=== PATIENT | male | born 1950 | race Caucasian/White ===

== ENCOUNTER 2020-08-15 10:22 | Emergency (ER) | payer MEDICARE, MEDICAID ==
[~2020-08-15] VITALS: Ht 182 cm; Wt 125.0 kg
--- NOTE | 2020-08-15 10:26 | ED Chest Pain ---
General Stated Complaint: CHEST PAIN Source: patient Exam Limitations: no limitations History of Present Illness Date Seen by Provider: Aug 15, 2020 Time Seen by Provider: 10:24 Initial Comments 69-year-old male presents with some chest tightness and shortness of breath. Patient reports that shortness of breath and chest tightness started about 3 days ago after being out in 11 weather and was out and it for a while. Patient has a history of COPD but does not take any inhalers. Patient reports he continues a pack per day smoking habit. He denies any nausea vomiting diaphoresis. Patient reports some mild increasing cough. No known COVID exposure. No fever, chills, nausea, vomiting, diarrhea, chest pain. Allergies and Home Medications Allergies Coded Allergies: No Known Drug Allergies (Unverified , 08/15/20) Patient Home Medication List Home Medication List Reviewed: Yes Review of Systems Review of Systems Constitutional: No chills, No fever Respiratory: Cough, Shortness of Air Cardiovascular: See HPI; Denies Chest Pain Gastrointestinal: Denies Diarrhea, Denies Nausea, Denies Vomiting Genitourinary: No Symptoms Reported Musculoskeletal: no symptoms reported Skin: no symptoms reported Psychiatric/Neurological: No Symptoms Reported Endocrine: No Symptoms Reported Past Osxawpv-Tbznrj-Gshikh Hx Past Med/Social Hx: Reviewed Nursing Past Med/Soc Hx Physical Exam Vital Signs Vital Signs - First Documented 08/15/20 10:22 Temp 36.0 Pulse 56 Resp 18 B/P (MAP) 168/69 (102) Pulse Ox 98 O2 Delivery Room Air Capillary Refill : Height, Weight, BMI Height: '" Weight: lbs. oz. kg; BMI Method: General Appearance: No Apparent Distress, WD/WN HEENT: PERRL/EOMI Respiratory: No Accessory Muscle Use, No Respiratory Distress, Decreased Breath Sounds (mild diffuse), Wheezing Cardiovascular: Regular Rate, Rhythm, No Edema Gastrointestinal: Non Tender, Soft Neurologic/Psychiatric: Alert, Oriented x3, Normal Mood/Affect, pipe foreman II-XII Norm as Tested Skin: Normal Color, Warm/Dry Progress/Results/Core Measures Results/Orders Lab Results Laboratory Tests Test 08/15/20 10:40 Range/Units White Blood Count 9.4 4.3-11.0 10^3/uL Red Blood Count 5.04 4.35-5.85 10^6/uL Hemoglobin 14.7 13.3-17.7 G/DL Hematocrit 45 40-54 % Mean Corpuscular Volume 89 80-99 FL Mean Corpuscular Hemoglobin 29 25-34 PG Mean Corpuscular Hemoglobin Concent 33 32-36 G/DL Red Cell Distribution Width 12.8 10.0-14.5 % Platelet Count 159 130-400 10^3/uL Mean Platelet Volume 12.0 H 7.4-10.4 FL Immature Granulocyte % (Auto) 1 % Neutrophils (%) (Auto) 78 H 42-75 % Lymphocytes (%) (Auto) 16 12-44 % Monocytes (%) (Auto) 1 0-12 % Eosinophils (%) (Auto) 4 0-10 % Basophils (%) (Auto) 1 0-10 % Neutrophils # (Auto) 7.3 1.8-7.8 X 10^3 Lymphocytes # (Auto) 1.5 1.0-4.0 X 10^3 Monocytes # (Auto) 0.1 0.0-1.0 X 10^3 Eosinophils # (Auto) 0.4 H 0.0-0.3 10^3/uL Basophils # (Auto) 0.1 0.0-0.1 10^3/uL Immature Granulocyte # (Auto) 0.1 0.0-0.1 10^3/uL Prothrombin Time 12.8 12.2-14.7 SEC INR Comment 0.9 0.8-1.4 Activated Partial Thromboplast Time 31 24-35 SEC Sodium Level 139 135-145 MMOL/L Potassium Level 5.3 H 3.6-5.0 MMOL/L Chloride Level 105 98-107 MMOL/L Carbon Dioxide Level 24 21-32 MMOL/L Anion Gap 10 5-14 MMOL/L Blood Urea Nitrogen 28 H 7-18 MG/DL Creatinine 1.49 H 0.60-1.30 MG/DL Estimat Glomerular Filtration Rate 46 BUN/Creatinine Ratio 19 Glucose Level 189 H 70-105 MG/DL Calcium Level 9.1 8.5-10.1 MG/DL Corrected Calcium 9.2 8.5-10.1 MG/DL Magnesium Level 1.7 1.6-2.4 MG/DL Total Bilirubin 0.3 0.1-1.0 MG/DL Aspartate Amino Transf (AST/SGOT) 15 5-34 U/L Alanine Aminotransferase (ALT/SGPT) 15 0-55 U/L Alkaline Phosphatase 68 40-136 U/L Myoglobin 68.4 10.0-92.0 NG/ML Troponin I < 0.30 <0.30 NG/ML Total Protein 7.0 6.4-8.2 GM/DL Albumin 3.9 3.2-4.5 GM/DL My Orders Orders - NDIAYE,SARITA L DO Cbc With Automated Diff (08/15/20 10:) Magnesium (08/15/20 10:) Chest 1 View Ap/Pa Only (08/15/20 10:) Ekg Tracing (08/15/20 10:) Comprehensive Metabolic Panel (08/15/20 10:) Myoglobin Serum (08/15/20 10:) Protime With Inr (08/15/20:) Partial Thromboplastin Time (08/15/20 10:) Monitor-Rhythm Ecg Trace Only (08/15/20 10:) Lipid Panel (08/16/20 06:00) Ed Iv/Invasive Line Start (08/15/20 10:26) Troponin I Fs (08/15/20 10:26) Aspirin Chewable Tablet (Baby Aspirin Ch (08/15/20 10:30) Albuterol/Ipra Inhalation Soln (Duoneb I (08/15/20 10:30) Svn Small Volume Nebulizer (08/15/20 10:26) Solu-Medrol 125 Mg Iv (08/15/20 11:40) Medications Given in ED Current Medications Medications Dose Ordered Sig/Elizabeth Route Start Time Stop Time Status Last Admin Dose Admin Albuterol/ Ipratropium 3 ml ONCE ONCE INH 08/15/20 10:30 08/15/20 10:31 DC 08/15/20 10:49 3 ML Aspirin 324 mg ONCE ONCE PO 08/15/20 10:30 08/15/20 10:31 DC 08/15/20 10:50 324 MG Vital Signs/I&O 08/15/20 08/15/20 10:22 10:45 Temp 36.0 Pulse 56 Resp 18 B/P (MAP) 168/69 (102) Pulse Ox 98 O2 Delivery Room Air Room Air Progress Progress Note : Time: 11:47 Progress Note Patient with nonspecific EKG with a negative troponin. Patient symptoms a been going on for 3 days. He feels like his morning is lungs. Troponins negative after approximate 3 days of the chest discomfort. I did offer him admission for further cardiac workup the patient declined. I will treat him for COPD as this is most likely the cause of his shortness of breath and discomfort. Recommend he follow-up with his primary care provider towards the end of week for recheck Initial ECG Impression Date: Aug 15, 2020 Initial ECG Impression Time: 10:30 Initial ECG Rhythm: Normal Sinus Initial ECG Impression: Nonspecific Changes Initial ECG Comparisson: No Previous ECG Available Comment Patient with sinus rhythm, heart rate 54, nonspecific changes, no acute changes Departure Impression Primary Impression: COPD exacerbation Disposition: 01 HOME, SELF-CARE Condition: Stable Departure-Patient Inst. Patient Instructions: Exacerbation of COPD (DC), Chronic Obstructive Pulmonary Disease (COPD) (DC) Add. Discharge Instructions: Follow-up with your primary care provider in 3-4 days for recheck in today symptoms Return the ER as needed for worsening symptoms Scripts Prednisone (Prednisone) 20 Mg Tab 40 MG PO DAILY, #6 TAB 0 Refills Prov: SARITA NDIAYE DO 08/15/20 Albuterol Sulfate (Ventolin Hfa) 18 Gm Hfa.aer.ad 18 GM INH Q4H PRN for WHEEZING, #1 EA Prov: SARITA NDIAYE DO 08/15/20 Azithromycin (Azithromycin) 250 Mg Tablet 250 MG PO UD, #6 TAB TAKE 2 TABLETS ON DAY ONE THEN TAKE 1 TABLET DAILY FOR FOUR MORE DAYS Prov: SARITA NDIAYE DO 08/15/20 SARITA NDIAYE DO Aug 15, 2020 10:26
[2020-08-15] MEDS ORDERED: RT-ALBUTEROL/IPRATROPIUM 3 ML (DUONEB) VIAL INH ONE (10:30)
[2020-08-15] MEDS ORDERED: ASPIRIN 81 MG CHEW (CHILDREN'S ASA) PO ONE (10:30)
--- NOTE | 2020-08-15 10:43 | Diagnostic Imaging Report ---
INDICATION: Shortness of breath and chest pain. TIME OF EXAM: 10:27 AM. COMPARISON: No prior studies are available for comparison. FINDINGS: The heart size is normal. The pulmonary vascularity is unremarkable. The lungs are clear. No infiltrate, effusion, or pneumothorax is detected. IMPRESSION: No acute cardiopulmonary process is detected. Dictated by: Dictated on workstation # [id number]
[2020-08-15 11:05] LABS: BASOPHILS % (AUTO) 1 % (0-10); EOSINOPHILS % (AUTO) 4 % (0-10); HEMATOCRIT 45 % (40-54); HEMOGLOBIN 14.7 G/DL (13.3-17.7); LYMPHOCYTES % (AUTO) 16 % (12-44); MEAN CORPUSCULAR HEMOGLOBIN 29 PG (25-34); MEAN CORPUSCULAR HGB CONC 33 G/DL (32-36); MEAN CORPUSCULAR VOLUME 89 FL (80-99); MONOCYTES % (AUTO) 1 % (0-12); NEUTROPHILS # (AUTO) 7.3 X 10^3 (1.8-7.8); NEUTROPHILS % (AUTO) 78 % (42-75); PLATELET COUNT 159 10^3/uL (130-400); WHITE BLOOD COUNT 9.4 10^3/uL (4.3-11.0)
[2020-08-15 11:06] LABS: BASOPHILS # (AUTO) 0.1 10^3/uL (0.0-0.1); EOSINOPHILS # (AUTO) 0.4 10^3/uL (0.0-0.3); LYMPHOCYTES # (AUTO) 1.5 X 10^3 (1.0-4.0); MONOCYTES # (AUTO) 0.1 X 10^3 (0.0-1.0)
[2020-08-15 11:35] LABS: CREATININE SERUM 1.49 MG/DL (0.60-1.30); POTASSIUM 5.3 MMOL/L (3.6-5.0)
[2020-08-15 11:36] LABS: ALBUMIN 3.9 GM/DL (3.2-4.5); BILIRUBIN,TOTAL 0.3 MG/DL (0.1-1.0); CALCIUM 9.1 MG/DL (8.5-10.1); MAGNESIUM 1.7 MG/DL (1.6-2.4)
[2020-08-15 11:39] LABS: INR 0.9 (0.8-1.4); PROTHROMBIN TIME PATIENT 12.8 SEC (12.2-14.7)
[2020-08-15] MEDS ORDERED: methylPREDNISolone 125 MG (Solu-MEDROL) VIAL IV STA (11:40)
[2020-08-15] MEDS ORDERED: ALBU18HF2 INH (11:46)
[2020-08-15] MEDS ORDERED: PRD20T PO (11:46)
[2020-08-15] MEDS ORDERED: AZIT250T12 PO (11:46)
[2020-08-15 11:54] VITALS: BP 122/72
== END 2020-08-15 11:55 | disposition home or self-care (01) ==
LOC: ER FS 10:25
DX: J44.1 Chronic obstructive pulmonary disease with (acute) exacerbation (principal)
CPT/HCPCS: 36415; 71045; 80053; 83735; 83874; 84484; 85025; 85610; 85730; 93005; 93041

== ENCOUNTER → 2020-11-28 | Outpatient (CLI) | payer MEDICARE, MEDICAID ==
[~2020-11-28] MED LIST: ALBU18HF2 INH; AZIT250T12 PO; PRD20T PO
== END ==
LOC: CARD 10:00
PROVIDERS: ATTEND Internal Medicine Cardiovascular Disease
DX: I11.9 Hypertensive heart disease without heart failure (principal)
CPT/HCPCS: 93306

== ENCOUNTER → 2021-01-10 | Outpatient (CLI) | payer MEDICARE, MEDICAID ==
[~2021-01-10] VITALS: Ht 182 cm; Wt 102.0 kg
[~2021-01-10] MED LIST changes: +CATHETER FLUSH 10 ML SYR IV PRN; +REGADENOSON 0.4 MG/5 ML SYR (LEXISCAN) IV ONE
[2021-01-10 09:04] VITALS: BP 154/67
--- NOTE | 2021-01-10 11:19 | Cardiology Stress Test Report ---
Stress Test Report Date of Procedure/Referring: Date of Procedure: January 10, 2021 PCP Dwain Colon MD Admitting Physician Santana Poon MD Indications: Hypertension Baseline Heart Rate: 48 Baseline Blood Pressure: Blood Pressure Systolic: 154 Blood Pressure Diastolic: 67 Baseline Vitals Vital Signs Date Time Temp Pulse Resp B/P (MAP) Pulse Ox O2 Delivery O2 Flow Rate FiO2 01/10/21 09:04 50 154/67 (96) 96 Baseline EKG: Baseline EKG: NSR Summary After explaining the procedure to the patient, he signed a consent and then brought to the stress nuclear laboratory. Patient received 0.4 mg Lexiscan for stress test, ECG, heart rate and blood pressure were monitored continuously. Resting and stress dose of radio tracer were injected, imaging was acquired and reviewed in short axis, horizontal long axis and vertical long axis views. TID: 1.15 SSS: 6 SDS: 5 EF: 67 1. Patient tolerated Lexiscan well 2. Diaphragmatic attenuation with decreased uptake involving the inferior wall and inferolateral wall 3. Normal left ventricular size, EF 67% DWAIN COLON MD January 10, 2021 11:19
== END ==
LOC: CARD 07:38
PROVIDERS: ATTEND Internal Medicine Cardiovascular Disease
DX: I10 Essential (primary) hypertension (principal); R07.9 Chest pain, unspecified
CPT/HCPCS: 78452; 93017; A9502

== ENCOUNTER 2021-02-02 10:00 | Day surgery (SDC) | payer MEDICARE, MEDICAID ==
[2021-02-02] VITALS (9 sets, daily range): BP systolic 121–163; BP diastolic 48–78
[~2021-02-02] VITALS: Ht 182.9 cm; Wt 100.6 kg
[2021-02-02 08:02] LABS: HEMATOCRIT 47 % (40-54); MEAN CORPUSCULAR HEMOGLOBIN 29 pg (25-34); MEAN CORPUSCULAR HGB CONC 32 g/dL (32-36); MEAN CORPUSCULAR VOLUME 89 fL (80-99); MEAN PLATELET VOLUME 11.9 fL (9.0-12.2); PLATELET COUNT 165 10^3/uL (130-400); WHITE BLOOD COUNT 10.2 10^3/uL (4.3-11.0)
--- NOTE | 2021-02-02 08:15 | Diagnostic Imaging Report ---
INDICATION: Pre-heart catheterization with chest pain and dyspnea. TIME OF EXAM: 7:52 AM Correlation is made with prior chest from 08/15/2020. FINDINGS: The heart size is normal. The pulmonary vascularity is unremarkable. The lungs are clear. No infiltrate, effusion or pneumothorax is detected. IMPRESSION: No acute cardiopulmonary process is detected. Dictated by: Dictated on workstation # [id number]
[2021-02-02 08:19] LABS: PROTHROMBIN TIME PATIENT 13.1 SEC (12.2-14.7)
[2021-02-02 08:25] LABS: ALBUMIN 3.9 GM/DL (3.2-4.5); BILIRUBIN,TOTAL 0.3 MG/DL (0.1-1.0); CALCIUM 9.3 MG/DL (8.5-10.1); CREATININE SERUM 1.81 MG/DL (0.60-1.30); POTASSIUM 4.6 MMOL/L (3.6-5.0)
--- NOTE | 2021-02-02 08:52 | Conscious Sedation/ASA ---
Conscious Sedation Pre-Proced Time 08:52 ASA Score 3 For ASA 3 and 4: Consider anesthesia and medical clearance. Also, for patients with a history of failed moderate sedation consider anesthesia. Airway Lungs Heart ASA score ASA 1: a normal healthy patient ASA 2: a patient with a mild systemic disease (mid diabetes, controlled hypertension, obesity x ASA 3: a patient with a severe systemic disease that limits activity (angina, COPD, prior Myocardial infarction) ASA 4: a patient with an incapacitating disease that is a constant threat to life (CHF, renal failure) ASA 5: a moribund patient not expected to survive 24 hrs. (ruptured aneurysm) ASA 6: a declared brain- patient whose organs are being harvested. For emergent operations, add the letter E after the classification Mallampati Classification Grade 3 Sedation Plan Analgesia, Amnesia, Plan communicated to team members, Discussed options with patient/fam, Discussed risks with patient/fam The patient is an appropriate candidate to undergo the planned procedure, sedation, and anesthesia. The patient immediately re-assessed prior to indication. DWAIN FIELD MD Feb 02, 2021 08:52
[~2021-02-02 10:00] MED LIST changes: +ASPI-1238 PO; +ATOR20TA66 PO; -CATHETER FLUSH 10 ML SYR IV PRN; +GLIM4TAB5 PO; +LISI1TAB29 PO; +METF-478 PO; +METO-333 PO; +NS IV 1000 ML 1,000 ML IV SCH; -REGADENOSON 0.4 MG/5 ML SYR (LEXISCAN) IV ONE; +TMSL.4C PO
[2021-02-02] MEDS ORDERED: METF-478 PO (11:12)
--- NOTE | 2021-02-02 11:13 | Discharge Inst-Post CATH ---
Discharge Inst-CATH/EP Problems Reviewed?: Yes Post Cardiac Cath/EP D/C Inst Follow Up/Plan Appointment with Dr. Ashutosh Roca in 1 to [address] Colon in 1 to 2 weeks <b>CARDIAC CATH/EP PROCEDURE DISCHARGE INSTRUCTIONS</b> ACTIVITY * Go Home directly and rest. * Limit activity of the leg (or wrist if it was used) for 7 days including aerobics, swimming, jogging, bicycling, etc. * Restrict stair-climbing for 7 days if possible, if not, climb up with your non-cath leg, then bring together on the same step. * Avoid lifting, pushing, pulling or excessive movement of the affected extremity for 7 days. * Customary sexual activity may be resumed after 2 days-use caution not to use a position that strains or causes pain to the affected extremity. * No driving for 24 hours. * NO SMOKING. * Avoid straining for bowel movements for 7 days. * Gentle walking on level ground is allowed. * Returning to work will depend on the type of procedure and the results. Your doctor will discuss this with you. CALL YOUR DOCTOR FOR ANY OF THE FOLLOWING: *If bleeding from the puncture site occurs- Apply gentle pressure to site with clean cloth and call your doctor or EMS. * If a knot or lump forms under the skin, increases in size, or causes pain. * If bruising appears to be worsening or moving further down your leg instead of disappearing. * Temperature above 101 F. CARE OF YOUR GROIN INCISION; * Bruising or purple discoloration of the skin near the puncture site is common. * You may shower only, no bathtub bathing for 5 days. Be careful to avoid slipping as your leg may feel stiff. * If a closure device was used on your femoral artery, please see the attached guide regarding care of the device and your leg. * Leave dressing on FOR 24 hours. CARE OF YOUR WRIST INCISION; * Bruising or purple discoloration of the skin near the puncture site is common. * You may shower. * DO NOT submerge wrist. * Leave dressing on FOR 24 hours. DWAIN COLON MD Feb 02, 2021 11:13 am
[2021-02-02] MEDS ORDERED: PATIENT MAY USE OWN MEDS, ALL PO SCH (11:15)
[2021-02-02] MEDS ORDERED: NS IV 1000 ML 1,000 ML IV SCH (11:15)
--- NOTE | 2021-02-02 11:23 | Cardiac Cath Report ---
Cardiac Cath Report Physician (s)/Home Comfort Advisor (s) Physician DWAIN FIELD MD Pre-Procedure Diagnosis Pre-Procedure Diagnosis: Coronary artery disease, peripheral arterial disease Post-Procedure Note Procedure Start Date: Feb 02, 2021 Name of Procedure: Left heart catheterization Bilateral lower extremity runoff First order Additional imaging x2 Findings/Procedure Note PROCEDURE NOTE: 70 years old gentleman has been having increasing claudication, diabetes, hypertension, had an abnormal MICHELLE, abnormal stress test, scheduled for cardiac catheterization and peripheral angiogram. After explaining the procedure to the patient, all pros and cons were explained, all questions were answered. The patient signed the consent and then he was placed on the cardiac catheterization laboratory. Groin was prepped SL fashion local anesthesia was used. Sheath placed in the right femoral artery. Angelica right and left catheter were used to access the coronary system. Angelica right catheter was placed at the bifurcation extending in the the left common iliac artery and runoff to the left leg was done then I advanced a straight wire and exchanged the catheter using short straight catheter placed at the common iliac artery and runoff to the left leg was done again then I did DSA imaging at the level of the trifurcation then the straight catheter was pulled back to the right common iliac artery and runoff to the right lower extremity was done then I proceeded with repeating the imaging and evaluate DSA imaging at the level of the trifurcation At the end of the procedure the sheath was removed. Closure device was deployed FINDINGS: Hemodynamics Aorta 108/38 mean of 59 ANATOMY: Left Main has moderate stenosis Left Anterior Descending is totally occluded at the ostium, severe stenosis at the diagonal artery proximally, the LAD is getting filled by collaterals Left Circumflex has moderate stenosis, the second obtuse marginal branch has 1 area of severe stenosis Right Coronary Artery is totally occluded proximally getting filled by collaterals LV Gram was not done due to the renal insufficiency Left lower extremity angiogram done on multiple phases, there is moderate to severe stenosis at the left common iliac artery, total occlusion of the SFA reconstructed at the popliteal area with three-vessel runoff Right lower extremity angiogram done on multiple phases, the right common iliac artery has moderate stenosis, total occlusion of the right SFA reconstructed at the popliteal artery, occluded anterior tibial artery with two-vessel runoff CONCLUSION: 1. Severe multivessel disease including total occlusion of the LAD reconstructed by collaterals total occlusion of the right coronary artery reconstructed by collaterals, severe disease at the proximal diagonal artery/ramus intermedius, moderate to severe disease at the second obtuse marginal branch 2. Severe peripheral arterial disease with total occlusion of both SFA, moderate to severe stenosis at the left common iliac artery, occluded right anterior tibial artery DISCUSSION AND RECOMMENDATION: Extensive peripheral arterial disease recommend evaluation with vascular surgery and will refer for evaluation for possible CABG Anesthesia Type: Conscious Sedation Estimated blood loss (mL): 15 ml Contrast Amount: 40 ml Total Radiation Dose: 643 mGy Post-Procedure Diagnosis Post-operative diagnosis: Coronary artery disease Peripheral arterial disease Claudication Hypertension DWAIN FIELD MD Feb 02, 2021 11:23 am
[2021-02-02] MEDS ORDERED: meTOprolol TARTRATE 25 MG (LOPRESSOR) TABLET PO SCH (21:00)
[2021-02-03] MEDS ORDERED: TAMSULOSIN 0.4 MG (FLOMAX) CAP PO SCH (09:00)
[2021-02-03] MEDS ORDERED: ASPIRIN E.C. 81 MG (ECOTRIN) TAB PO SCH (09:00)
[2021-02-03] MEDS ORDERED: LISINOPRIL HCTZ PO SCH (09:00)
== END 2021-02-02 15:15 | disposition home or self-care (01) ==
LOC: EDSTATUS 10:00 → CSD 12:41 → CATH 15:15
PROVIDERS: ATTEND Internal Medicine Cardiovascular Disease
DX: I25.10 Atherosclerotic heart disease of native coronary artery without angina pectoris (principal); I70.213 Atherosclerosis of native arteries of extremities with intermittent claudication, bilateral legs; I10 Essential (primary) hypertension; E78.2 Mixed hyperlipidemia; F17.210 Nicotine dependence, cigarettes, uncomplicated; Z79.82 Long term (current) use of aspirin; Z79.84 Long term (current) use of oral hypoglycemic drugs; Z79.899 Other long term (current) drug therapy
CPT/HCPCS: 36245; 36248; 71045; 75716; 80053; 80061; 85027; 85610; 85730; 87081; 93458; C1760; C1769; C1887; C1894; 36415

== ENCOUNTER → 2021-03-12 | Outpatient (CLI) | payer MEDICARE, MEDICAID ==
[~2021-03-12] MED LIST changes: -NS IV 1000 ML 1,000 ML IV SCH
[2021-03-12 10:50] LABS: ABG BASE EXCESS -3.9 MMOL/L (-2.5-2.5); ABG OXYGEN SATURATION 96 % (94-100); ABG PCO2 39 MMHG (35-45); ABG PO2 74 MMHG (79-93); ABG TCO2 22.5 MMOL/L (21.0-31.0)
[2021-03-12 10:52] LABS: PATIENT TEMP 35.3; VENTILATOR NO
[2021-03-12 11:04] LABS: ABG PH 7.34 (7.37-7.43)
== END ==
LOC: LAB 10:15
PROVIDERS: ATTEND Nurse Practitioner Family
DX: J44.9 Chronic obstructive pulmonary disease, unspecified (principal)
CPT/HCPCS: 82805

== ENCOUNTER → 2021-05-15 | Outpatient (CLI) | payer MEDICARE, MEDICAID ==
--- NOTE | 2021-05-15 09:08 | Diagnostic Imaging Report ---
EXAMINATION: CT chest without contrast. TECHNIQUE: Multiple contiguous axial images were obtained through the chest without the use of intravenous contrast. All CT scans use one or more of the following dose optimizing techniques: automated exposure control, MA and/or KvP adjustment based on patient size and exam type or iterative reconstruction. HISTORY: COPD COMPARISON: None available. FINDINGS: There is no edema or pneumonia. No pleural effusion. No pneumothorax. There are few tiny 2 and 3 mm nodules that appear calcified consistent with prior granulomatous infection. Lungs are moderately emphysematous. There is no axillary or supraclavicular lymphadenopathy. There is no mediastinal lymphadenopathy. Heart size is normal. There are severe coronary artery calcifications. No pericardial effusion. Aorta is normal in caliber. There has been coronary artery bypass grafting with scarring in the anterior mediastinum changes of median sternotomy. Limited views of the upper abdomen are unremarkable. There are no suspicious osseous lesions. IMPRESSION: 1. Moderately emphysematous lungs without acute abnormality Dictated by: Dictated on workstation # [id number]
== END ==
LOC: RAD 08:15
PROVIDERS: ATTEND Nurse Practitioner Family
DX: J43.9 Emphysema, unspecified (principal)
CPT/HCPCS: 71250

== ENCOUNTER → 2021-05-25 | Outpatient (CLI) | payer MEDICARE, MEDICAID | LOC: CARD 11:00 | PROVIDERS: ATTEND Internal Medicine Cardiovascular Disease | DX: I11.9 Hypertensive heart disease without heart failure (principal) | CPT/HCPCS: 93306 ==

== ENCOUNTER 2021-06-29 10:21 | Outpatient (RCR) | payer MEDICARE, MEDICAID ==
[~2021-06-29 10:21] MED LIST changes: -LISI1TAB29 PO; +LISI1TAB44 PO
== END 2021-08-17 | disposition home or self-care (01) ==
LOC: CR 10:21
PROVIDERS: ATTEND Thoracic Surgery (Cardiothoracic Vascular Surgery)
DX: Z95.1 Presence of aortocoronary bypass graft (principal)
CPT/HCPCS: 93798

== ENCOUNTER → 2021-12-27 | Outpatient (CLI) | payer MEDICARE, MEDICAID | LOC: CARDFS 14:19 | PROVIDERS: ATTEND Internal Medicine Cardiovascular Disease | DX: I11.9 Hypertensive heart disease without heart failure (principal) | CPT/HCPCS: 93306 ==

== ENCOUNTER → 2022-01-09 | Outpatient (CLI) | payer MEDICARE, MEDICAID ==
[~2022-01-09] MED LIST changes: +REGADENOSON 0.4 MG/5 ML SYR (LEXISCAN) IV ONE
[2022-01-09] MEDS: CATHETER FLUSH 10 ML SYR IVP PRN ×2 (07:48→09:29)
[2022-01-09 09:27] VITALS: BP 163/75
--- NOTE | 2022-01-09 13:19 | Cardiology Stress Test Report ---
Stress Test Report Date of Procedure/Referring: Date of Procedure: January 09, 2022 PCP Santana Poon MD Admitting Physician Admitting Physician: Attending Physician: Cheryl Colon MD Indications: CP Baseline Heart Rate: 57 Baseline Blood Pressure: Blood Pressure Systolic: 163 Blood Pressure Diastolic: 75 Baseline Vitals Vital Signs Date Time Temp Pulse Resp B/P (MAP) Pulse Ox O2 Delivery O2 Flow Rate FiO2 01/09/22 09:27 59 16 163/75 (104) 98 Room Air Baseline EKG: Baseline EKG: NSR Summary After explaining the procedure to the patient, he signed a consent and then brought to the stress nuclear laboratory. Patient received 0.4 mg Lexiscan for stress test, ECG, heart rate and blood pressure were monitored continuously. Resting and stress dose of radio tracer were injected, imaging was acquired and reviewed in short axis, horizontal long axis and vertical long axis views. TID: 1.13 SSS: 6 SDS: 2 EF: 51 1. Patient tolerated Lexiscan well 2. Diaphragmatic attenuation with decreased uptake involving the whole inferior wall and inferoapical wall and anterior apical segment with mild reversibility at the mid to apical inferior wall and anterior apical segment. 3. Normal left ventricular size, ejection fraction 51% Copy Copies To 1: SANTANA POON MD, BASHAR J MD January 09, 2022 13:19
== END ==
LOC: CARD 08:15
PROVIDERS: ATTEND Internal Medicine Cardiovascular Disease
DX: R07.9 Chest pain, unspecified (principal)
CPT/HCPCS: 78452; 93017; A9502

== ENCOUNTER 2022-02-20 06:43 | Outpatient (CLI) | payer MEDICARE, MEDICAID ==
[~2022-02-20] VITALS: Ht 182.9 cm; Wt 98.0 kg
[~2022-02-20 06:43] MED LIST changes: -REGADENOSON 0.4 MG/5 ML SYR (LEXISCAN) IV ONE
[2022-02-20] MEDS ORDERED: LOSA25TA41 PO (13:35)
[2022-02-20] MEDS ORDERED: AMLO-250 PO (13:35)
[2022-02-20] MEDS ORDERED: FLUT1AER IH (13:35)
[2022-02-20] MEDS ORDERED: UMEC62.5 IH (13:35)
[2022-02-20] MEDS ORDERED: SEMA0.25 SQ (13:35)
== END 2022-02-20 13:38 | disposition home or self-care (01) ==
LOC: PREOP 06:43
PROVIDERS: ATTEND Surgery
DX: Z01.818 Encounter for other preprocedural examination (principal)

== ENCOUNTER 2022-03-05 07:12 | Day surgery (SDC) | payer MEDICARE, MEDICAID ==
[~2022-03-05] VITALS: Ht 182.9 cm; Wt 98.0 kg
[~2022-03-05 07:12] MED LIST changes: +AMLO-250 PO; +FLUT1AER IH; +LOSA25TA41 PO; +SEMA0.25 SQ; +UMEC62.5 IH
[2022-03-05] MEDS ORDERED: LACTATED RINGERS 1,000 ML IV STA (07:15)
[2022-03-05 07:39] VITALS: BP 124/70
[2022-03-05] MEDS ORDERED: HURRICAINE EXT TUBE (BENZOCAINE) XX PRN (07:45)
[2022-03-05] MEDS ORDERED: PROPOFOL INJECTION 50 ML IV ONE (08:09)
[2022-03-05] MEDS ORDERED: MIDAZOLAM 2 MG/2 ML (VERSED) VIAL ONE (08:09)
--- NOTE | 2022-03-05 08:24 | Progress Note-Pre Operative ---
Pre-Operative Progress Note H&P Reviewed The H&P was reviewed, patient examined and no changes noted. Time Seen by Provider: 08:18 Date H&P Reviewed: Mar 05, 2022 Time H&P Reviewed: 08:18 Pre-Operative Diagnosis: Hx of colon polyps, Chronic Gastritis TANIA STAFFORD DO Mar 05, 2022 08:24
[2022-03-05 09:49] VITALS: BP 92/53
--- NOTE | 2022-03-05 09:52 | Progress Note-Post Operative ---
Post-Operative Progess Note Surgeon (s)/Bolt Labeler (s) Surgeon TANIA STAFFORD DO Bolt Labeler: JESUS Vivar Pre-Operative Diagnosis Hx of colon polyps, Chronic Gastritis Post-Operative Diagnosis Chronic Gastritis Gastric Ulcers Harrington's Esophagus Duodenitis Hiatal hernia Polyp diverticula int hemorrhoids Procedure & Operative Findings Date of Procedure 03/05/22 Procedure Performed/Findings EGD with Bx Colonoscopy with snare PROCEDURE NOTE: After informed consent was obtained, the patient was brought to the endoscopy suite, placed in bed in left lateral decubitus position. He was administered IV sedation by the BEVERAGE HOST who then monitored vitals the entire time, heart rate, blood pressure and pulse ox and the scope was inserted down the mouth through the esophagus into the stomach. On the way down, noted severe esophagitis; looked like Harrington's esophagus, took a picture. Pushed into the stomach and noted severe gastritis with what looked like old blood. Pushed past the antrum and into the duodenum; it looked like severe duodenitis and possibly ulcers here as well. Did a biopsy of the first portion of the duodenum, 2nd and 3rd portion looked ok. Pulled back and did a biopsy of the antrum and then retroflexed the scope. Saw a small hiatal hernia, took a picture of this and saw more inflammation and ulcers. Then pulled the scope into the GE junction, took another picture of the hiatal hernia and bad inflammation. Did a biopsy of the GE junction. Pushed the scope back into the stomach and suctioned all the air out of the stomach. At this point pulled the scope up the esophagus and out the mouth. Switched camera, switched gloves, went down below and started the colonoscopy. Pushed in and found a polyp in the ascending colon; did a snare polypectomy. Continued pushing in and found a diverticula just outside the cecum. Had pushed at least 150 cm to get all the way to cecum, took a picture of the appendiceal orifice and noted the ileocecal valve/ Then slowly withdrew the scope, insufflating to look circumferentially at the de [place] vega starting in the cecum, up the ascending colon to the hepatic flexure, then down the transverse colon to the splenic flexure, into the descending colon, down into the sigmoid and finally into the rectum. Retroflexed in the rectal vault and saw some minimal internal hemorrhoids and took a picture of this. The patient tolerated the procedure and he recovered in the endoscopy suite. Recommended for repeat colonoscopy in 5 years Anesthesia Type IV sedation by BEVERAGE HOST Estimated Blood Loss Estimated blood loss (mL): scant Specimens/Packing Specimens Removed duodenal bx antral bx GE jxn bx body of stomach bx asc colon polyp TANIA STAFFORD DO Mar 05, 2022 09:52
[2022-03-05 09:54] VITALS: BP 96/52
[2022-03-05] MEDS ORDERED: SUCR1TAB36 PO (09:54)
[2022-03-05] MEDS ORDERED: PANT40TA2 PO (09:54)
--- NOTE | 2022-03-05 09:55 | Endoscopy Discharge Instruct ---
Endo Procedure/Findings Findings 1.: Gastric Ulcer, Gastritis 2.: Hiatal Hernia 3.: Polyp 4.: Diverticulosis, Internal Hemorrhoids Discharge Instructions - Activity: You might feel a little sleepy until tomorrow. This is due to the medicine you received to relax you. Until tomorrow, you should: NOT drive a car, operate machinery or power tools. NOT drink any alcoholic beverages. NOT make any important decisions or sign importortant papers. Do not return to work until tomorrow, unless otherwise instructed. Resume previous activities tomorrow. Diet: Start by taking liquids. If you tolerate liquids, advance to solid food. 1.: EGD in 6-8 weeks 2.: Colonscopy in 5 years Notify Physician - If you experience excessive bleeding, unusual abdominal pain, fever, or chest pain, contact your doctor immediately. TANIA STAFFORD DO Mar 05, 2022 09:55
[2022-03-05 10:10] VITALS: BP 106/59
[2022-03-05 10:40] VITALS: BP 110/65
--- NOTE | 2022-03-05 12:02 | Anesthesia-General Post-Op ---
MAC Patient Condition Mental Status/LOC: Same as Preop Cardiovascular: Satisfactory Nausea/Vomiting: Absent Respiratory: Satisfactory Pain: Controlled Complications: Absent Post Op Complications Complications None Follow Up Care/Instructions Patient Instructions None needed. Anesthesiology Discharge Order Discharge Order Patient is doing well, no complaints, stable vital signs, no apparent adverse anesthesia problems. No complications reported per nursing. KARRI FRANKLIN CRNA Mar 05, 2022 12:02
== END 2022-03-05 10:54 | disposition home or self-care (01) ==
LOC: ENDO 07:12
PROVIDERS: ATTEND Surgery
DX: Z12.11 Encounter for screening for malignant neoplasm of colon (principal); D12.2 Benign neoplasm of ascending colon; K64.8 Other hemorrhoids; K57.30 Diverticulosis of large intestine without perforation or abscess without bleeding; K29.90 Gastroduodenitis, unspecified, without bleeding; K31.89 Other diseases of stomach and duodenum; K21.00 Gastro-esophageal reflux disease with esophagitis, without bleeding; K22.70 Barrett's esophagus without dysplasia; K44.9 Diaphragmatic hernia without obstruction or gangrene; F17.210 Nicotine dependence, cigarettes, uncomplicated; J44.9 Chronic obstructive pulmonary disease, unspecified; Z79.51 Long term (current) use of inhaled steroids; Z79.82 Long term (current) use of aspirin; Z86.010 Personal history of colon polyps
CPT/HCPCS: 82947

== ENCOUNTER 2022-05-16 11:25 | Emergency (ER) | payer MEDICARE, MEDICAID ==
[~2022-05-16] VITALS: Ht 182 cm; Wt 101.0 kg
[~2022-05-16 11:25] MED LIST changes: +PANT40TA2 PO; +SUCR1TAB36 PO
--- NOTE | 2022-05-16 11:46 | ED Back Pain ---
General Chief Complaint: Back Problems Stated Complaint: LWR BACK PAIN Nursing Triage Note: Patient has presented to ER with cc of low back for at least the last 2 weeks. He denies any known injury. He states that he has not taken anything for his pain. He has not seen his doctor. He reports that he thinks that his mattress is too soft and causing some of his pain. He states over the last 2 weeks his pain has gotten better but he still has some pain and came to ER for evaluation. History of Present Illness Date Seen by Provider: May 16, 2022 Time Seen by Provider: 11:43 Initial Comments 71-year-old male is here with complaints of low back pain which is been going on for 2 weeks. Patient states that it has not been improving. Patient has not been taking any medications at all for pain at home. Denies numbness or tingling, fever, chills, weakness in upper or lower extremities, trauma, falls, injuries, headache or neck pain. Patient states that his bed is soft and he thinks that may trigger his back pain. Patient is able to ambulate and does not appear to be in any significant pain or have any apparent back disability. No abdominal pain, hematuria, dysuria, flank pain. Allergies and Home Medications Allergies Coded Allergies: No Known Drug Allergies (Unverified , 08/15/20) Patient Home Medication List Home Medication List Reviewed: Yes Amlodipine Besylate (Amlodipine Besylate) 5 Mg Tablet, 5 MG PO DAILY, (Reported) Entered as Reported by: CARL SCOTT on 02/20/22 1335 Atorvastatin Calcium (Atorvastatin Calcium) 20 Mg Tablet, 20 MG PO DAILY, (Reported) Entered as Reported by: CINDY BELLAMY on 02/02/21827 Fluticasone/Vilanterol (Breo Ellipta 100-25 Mcg INH) 100 Mcg-25 Mcg/Dose Blst.w.dev, 1 EACH IH, (Reported) Entered as Reported by: CARL SCOTT on 02/20/22 133 Glimepiride (Glimepiride) 4 Mg Tablet, 4 MG PO DAILY, (Reported) Entered as Reported by: CINDY BELLAMY on 02/02/21 0828 Lisinopril/Hydrochlorothiazide (Lisinopril-Hctz 10-12.5 mg Tab) 1 Each Tablet, 1 EACH PO DAILY, (Reported) Entered as Reported by: CINDY BELLAMY on 02/02/21 0828 Losartan Potassium (Losartan Potassium) 25 Mg Tablet, 25 MG PO DAILY, (Reported) Entered as Reported by: CARL SCOTT on 02/20/22 133 Metoprolol Tartrate (Metoprolol Tartrate) 25 Mg Tablet, 25 MG PO BID, (Reported) Entered as Reported by: CIDNY BELLAMY on 02/02/21 08 Pantoprazole Sodium (Protonix) 40 Mg Tablet.dr, 40 MG PO BID Prescribed by: TANIA STAFFORD on 03/05/22 0954 Semaglutide (Ozempic) 0.25 Mg/0.2 Ml Pen.injctr, 0.5 MG SQ, (Reported) Entered as Reported by: CARL SCOTT on 02/20/22 133 Sucralfate (Carafate) 1 Gram Tablet, 1 GM PO ACHS Prescribed by: TANIA STAFFORD on 03/05/22 0954 Tamsulosin HCl (Flomax) 0.4 Mg Cap, 0.4 MG PO DAILY, (Reported) Entered as Reported by: CINDY BELLAMY on 02/02/21 08 Umeclidinium [place] (Incruse Ellipta) 62.5 Mcg/Actuation Blst.w.dev, 62.5 MCG IH, (Reported) Entered as Reported by: CARL SCOTT on 02/20/22 133 Review of Systems Constitutional: no symptoms reported EENTM: no symptoms reported Respiratory: no symptoms reported Cardiovascular: no symptoms reported Gastrointestinal: no symptoms reported Genitourinary: no symptoms reported Musculoskeletal: back pain Skin: no symptoms reported Psychiatric/Neurological: No Symptoms Reported Past Hrolbab-Cpvczd-Guufil Hx Patient Social History Tobacco Use?: Yes Tobacco type used: Cigarettes Smoking Status: Current Everyday Smoker Substance use?: No Alcohol Use?: No Pt feels they are or have been: Unable to obtain Immunizations Up To Date First/Initial COVID19 Vaccinat: YES Second COVID19 Vaccination Angel: YES Third COVID19 Vaccination Date: YES Seasonal Allergies Seasonal Allergies: No Past Medical History Surgeries: Yes ("CHEST" ANEURSYM, RT THUMB, RT ANKLE PINS, LT THUMB TENDON) Open Heart Surgery, Orthopedic Respiratory: Yes COPD Currently Using CPAP: No Currently Using BIPAP: No Cardiac: Yes High Cholesterol, Hypertension Neurological: No Genitourinary: Yes Benign Prostatic Hyperpl Gastrointestinal: Yes Gastroesophageal Reflux Musculoskeletal: Yes Arthritis Endocrine: Yes Diabetes, Insulin dep HEENT: No Cancer: No Psychosocial: No Anxiety, Depression Integumentary: Yes (EXCESSIVE ITCHING ON BILAT HANDS) Blood Disorders: No Physical Exam Vital Signs Vital Signs - First Documented 05/16/22 11:36 Temp 36.2 Pulse 65 Resp 16 B/P (MAP) 153/69 (97) Pulse Ox 96 O2 Delivery Room Air Capillary Refill : Height, Weight, BMI Height: '" Weight: lbs. oz. kg; 30.00 BMI Method: General Appearance: No Apparent Distress, WD/WN HEENT: PERRL/EOMI Neck: Full Range of Motion, Normal Inspection, Non Tender, Supple Cardiovascular: Regular Rate, Rhythm Respiratory: Chest Non Tender, Lungs Clear Gastrointestinal: Normal Bowel Sounds, Non Tender, Soft Back: Normal Inspection, No CVA Tenderness, Vertebral Tenderness (arounf L1, L2, L3 area, no muscle spasm) Extremity: Normal Inspection, Normal Range of Motion, Non Tender Neurologic/Psychiatric: Alert, Oriented x3, No Motor/Sensory Deficits, Normal Mood/Affect Skin: Normal Color, Warm/Dry Progress/Results/Core Measures Results/Orders My Orders Orders - CASS ALEXANDER MD Lumbar Spine 2 Or 3 View (05/16/22 11:58) Vital Signs/I&O 05/16/22 11:36 Temp 36.2 Pulse 65 Resp 16 B/P (MAP) 153/69 (97) Pulse Ox 96 O2 Delivery Room Air Blood Pressure Mean: 97 Progress Progress Note : Progress Note 1. LOW BACK PAIN: ARTHRITIS: - XR LUMBAR SPINE:degenerative changes of spine - Toradol 30mg im STAT - No red flags for cord compression - Advised Ibuprofen and Tylenol and Lidoderm patches - Follow up with PCP in 3 to 7 days -The patient was seen in the ED, and treated appropriately to presentation at a specific point in time. Patient is informed that there is a possibility that disease and illness can evolve and change in acuity rapidly or slowly after patient is discharged from the ER. Precautionary advice given to the patient for immediate return to ER if symptoms worsen or do not resolve, and to seek emergency care sooner rather than later. Pt also advised on the importance of PCP follow up and compliance with management and follow up plan with PCP and/or specialist, as this is part of the management plan. Pt verbally expressed understanding. Diagnostic Imaging Diagonstic Imaging: Xray Plain Films/CT/US/NM/MRI: other Comments [facility], [place] NAME: SONIA PEACE [facility] REC#: [id number] PT STATUS: REG ER : 1950 PHYSICIAN: CASS ALEXANDER MD ADMIT DATE: 05/16/22/ER FS Draft Date of Exam:05/16/22 LUMBAR SPINE 2 OR 3 VIEW LUMBAR SPINE 2 OR 3 VIEW INDICATION: Low back pain worsened while laying down COMPARISON: None available. TECHNIQUE: 3 views of the lumbosacral spine FINDINGS: Normal alignment of the thoracic spine. No compression deformity within the vertebral bodies. There is no ankylosis of the lumbar spine or SI joints. Mild degenerative arthritis of both SI joints. Multilevel degenerative disc disease is greatest at L5-S1 with moderate vertebral height loss and endplate spurs. Aortobiiliac stent graft is noted. IMPRESSION: 1. No acute osseous abnormality lumbar spine. 2. Multilevel degenerative disc disease. Dictated on workstation # [id number] Dict: 05/16/22 1216 Trans: 05/16/22 1220 [facility] [id number] Interpreted by: CAROLINA BARTH MD Electronically signed by: Departure Impression Primary Impression: Arthritis, lumbar spine Disposition: 01 HOME, SELF-CARE Condition: Stable Departure-Patient Inst. Referrals: BERTHA PINEDA MD (PCP) Primary Care Physician Patient Instructions: Low Back Pain (DC) Add. Discharge Instructions: - Advised Ibuprofen and Tylenol and Lidoderm patches - gentle stretching - Follow up with PCP in 3 to 7 days All discharge instructions reviewed with patient and/or family. Voiced understanding. CASS ALEXANDER MD May 16, 2022 11:46
--- NOTE | 2022-05-16 12:20 | Diagnostic Imaging Report ---
LUMBAR SPINE 2 OR 3 VIEW INDICATION: Low back pain worsened while laying down COMPARISON: None available. TECHNIQUE: 3 views of the lumbosacral spine FINDINGS: Normal alignment of the thoracic spine. No compression deformity within the vertebral bodies. There is no ankylosis of the lumbar spine or SI joints. Mild degenerative arthritis of both SI joints. Multilevel degenerative disc disease is greatest at L5-S1 with moderate vertebral height loss and endplate spurs. Aortobiiliac stent graft is noted. IMPRESSION: 1. No acute osseous abnormality lumbar spine. 2. Multilevel degenerative disc disease. Dictated by: Dictated on workstation # [id number]
[2022-05-16 12:46] VITALS: BP 153/69
[2022-05-16] MEDS ORDERED: KETOROLAC 30 MG/ML VIAL IM ONE (13:00)
== END 2022-05-16 12:47 | disposition home or self-care (01) ==
LOC: EDUNIT# 11:25 → ER FS 11:26
DX: M47.816 Spondylosis without myelopathy or radiculopathy, lumbar region (principal); E11.9 Type 2 diabetes mellitus without complications; F17.210 Nicotine dependence, cigarettes, uncomplicated; Z79.4 Long term (current) use of insulin
CPT/HCPCS: 72100

== ENCOUNTER 2022-07-15 05:33 | Outpatient (CLI) | payer MEDICARE, MEDICAID ==
[~2022-07-15] VITALS: Ht 185.5 cm; Wt 100.9 kg
[2022-07-15] MEDS ORDERED: ASPI-999 PO (13:17)
== END 2022-07-15 13:20 | disposition home or self-care (01) ==
LOC: PREOP 05:33
PROVIDERS: ATTEND Surgery
DX: Z01.818 Encounter for other preprocedural examination (principal); K26.9 Duodenal ulcer, unspecified as acute or chronic, without hemorrhage or perforation

== ENCOUNTER 2022-07-22 06:57 | Day surgery (SDC) | payer MEDICARE, MEDICAID ==
[~2022-07-22] VITALS: Ht 185.5 cm; Wt 100.9 kg
[~2022-07-22 06:57] MED LIST changes: +ASPI-999 PO
[2022-07-22] MEDS ORDERED: LACTATED RINGERS 1,000 ML IV STA (07:13)
[2022-07-22] MEDS ORDERED: HURRICAINE EXT TUBE (BENZOCAINE) XX PRN (07:15)
[2022-07-22 07:30] VITALS: BP 164/73
--- NOTE | 2022-07-22 08:34 | Progress Note-Pre Operative ---
Pre-Operative Progress Note Date of Available H&P: Jun 25, 2022 Date H&P Reviewed: Jul 22, 2022 Time H&P Reviewed: 08:25 History & Physical: H&P Reviewed, Patient Examed, No changes noted Pre-Operative Diagnosis: Hx of duodenal ulcer TANIA STAFFORD DO Jul 22, 2022 08:34
[2022-07-22] MEDS ORDERED: MIDAZOLAM 2 MG/2 ML (VERSED) VIAL ONE (09:09)
[2022-07-22] MEDS ORDERED: PROPOFOL INJECTION 50 ML IV ONE (09:09)
[2022-07-22 09:35] VITALS: BP 131/64
--- NOTE | 2022-07-22 09:39 | Progress Note-Post Operative ---
Post-Operative Progess Note Surgeon (s)/Professor Of Mechanical Engineering (s) Surgeon TANIA STAFFORD DO Professor Of Mechanical Engineering: none Pre-Operative Diagnosis Hx of duodenal ulcer Post-Operative Diagnosis Gastritis Gastric Polyp Esophagitis Procedure & Operative Findings Date of Procedure 07/22/22 Procedure Performed/Findings EGD with biopsy EGD with snare polypectomy removal of polyp PROCEDURE NOTE: After informed consent was obtained, the patient was brought to the endoscopy suite, placed in bed in left lateral decubitus position. He was administered IV sedation by the PRODUCT ASSEMBLER who then monitored vitals the entire time, heart rate, blood pressure and pulse ox and the scope was inserted down the mouth through the esophagus into the stomach. On the way down, noted some mild esophagitis, pushed into the stomach and pushed past the antrum into the duodenum; trying to look for the ulcer. Duodenum appeared to have some mild inflammation and I took a picture, but did not see an ulcer. Pulled back and did a biopsy of the antrum; which looked mildly inflame. Then retroflexed the scope, did not see a hiatal hernia and it almost looked like pt had had a wrap. Took a picture of this and then noted a large gastric polyp. I elected to remove the entire polyp and did this with hot snare polypectomy. Pulled the scope into the GE junction, took a picture of and then did a biopsy of the GE junction. I then had to use a net to grasp the polyp and pull the scope all the way out to retrieve it. I then pushed the scope back into the stomach, suctioned all the air out of the stomach and then pulled the scope up the esophagus. At the upper 1/3 of the esophagus I noted changes in the mucosa and took a picture. I finally pulled the scope out of the mouth. The patient tolerated the procedure, and he recovered in endoscopy suite. Anesthesia Type IV sedation by PRODUCT ASSEMBLER Estimated Blood Loss Estimated blood loss (mL): scant Specimens/Packing Specimens Removed duodenal bx antral bx GE jxn bx Stomach polyp TANIA STAFFORD DO Jul 22, 2022 09:39
[2022-07-22 09:40] VITALS: BP 126/59
--- NOTE | 2022-07-22 09:40 | Endoscopy Discharge Instruct ---
Endo Procedure/Findings Findings 1.: Polyp 2.: Gastritis 3.: Other Findings (duodenitis and esophagitis) Discharge Instructions - Activity: You might feel a little sleepy until tomorrow. This is due to the medicine you received to relax you. Until tomorrow, you should: NOT drive a car, operate machinery or power tools. NOT drink any alcoholic beverages. NOT make any important decisions or sign importortant papers. Do not return to work until tomorrow, unless otherwise instructed. Resume previous activities tomorrow. Diet: Start by taking liquids. If you tolerate liquids, advance to solid food. 1.: EGD in 1 year Notify Physician - If you experience excessive bleeding, unusual abdominal pain, fever, or chest pain, contact your doctor immediately. TANIA STAFFORD DO Jul 22, 2022 09:40
[2022-07-22 09:45] VITALS: BP 146/69
[2022-07-22 09:50] VITALS: BP 146/69
[2022-07-22 10:10] VITALS: BP 146/69
--- NOTE | 2022-07-22 11:47 | Anesthesia-General Post-Op ---
MAC Patient Condition Mental Status/LOC: Same as Preop Cardiovascular: Satisfactory Nausea/Vomiting: Absent Respiratory: Satisfactory Pain: Controlled Complications: Absent Post Op Complications Complications None Follow Up Care/Instructions Patient Instructions None needed. Anesthesiology Discharge Order Discharge Order Patient is doing well, no complaints, stable vital signs, no apparent adverse anesthesia problems. No complications reported per nursing. KARRI FRANKLIN CRNA Jul 22, 2022 11:47
== END 2022-07-22 10:25 | disposition home or self-care (01) ==
LOC: ENDO 06:57
PROVIDERS: ATTEND Surgery
DX: K21.00 Gastro-esophageal reflux disease with esophagitis, without bleeding (principal); K29.70 Gastritis, unspecified, without bleeding; K31.89 Other diseases of stomach and duodenum; K31.7 Polyp of stomach and duodenum; F17.210 Nicotine dependence, cigarettes, uncomplicated; K29.80 Duodenitis without bleeding
CPT/HCPCS: 88305

== ENCOUNTER → 2023-03-24 | Outpatient (CLI) | payer MEDICARE, MEDICAID ==
[~2023-03-24] MED LIST changes: +RT-ALBUTEROL SULF 2.5 MG/3 ML PRE-MIX VIAL INH ONE
== END ==
LOC: RT 08:30
PROVIDERS: ATTEND Nurse Practitioner Family
DX: J44.9 Chronic obstructive pulmonary disease, unspecified (principal)
CPT/HCPCS: 94060; 94621; 94726; 94729